=== PATIENT | female | born 1985 | race Two or more races ===

== ENCOUNTER 2025-06-05 20:28 | Emergency (ER) | payer SELFPAY ==
[~2025-06-05] VITALS: Ht 154.9 cm; Wt 96.6 kg
[2025-06-05 20:57] VITALS: BP 135/73
[2025-06-05 21:21] LABS: *BILIRUBIN,URIN NEGATIVE (NEGATIVE); *BLOOD, URINE 3+ (NEGATIVE); *CLARITY,URINE CLOUDY (CLEAR); *COLOR,URINE YELLOW (YELLOW); *KETONES,URINE TRACE (NEGATIVE); *PROTEIN,URINE 3+ (NEGATIVE); *UROBILINOGEN,URINE 0.2 E.U./dl (NORMAL); LEUKOCYTE ESTERASE ,URINE 3+ (NEGATIVE); NITRITE, URINE POSITIVE (NEGATIVE); UGLUCOSE NEGATIVE (NEGATIVE)
[2025-06-05 21:24] LABS: *URINE HCG, QUAL NEGATIVE (NEGATIVE)
[2025-06-05 21:35] LABS: SQUAMOUS EPITHELIAL CELL,UR MODERATE /HPF (NONE SEEN)
[2025-06-05 21:43] LABS: PLATELET COUNT (AUTO) 281 K/uL (179-408); RED BLOOD CELL COUNT(AUTO) 4.08 MIL/uL (3.63-4.92); RED CELL DISTRIBUTION WIDTH 13.6 % (12.3-17.7); WHITE BLOOD COUNT (AUTO) 12.3 K/uL (3.8-11.8)
[2025-06-05 21:51] LABS: CREATININE 0.9 mg/dL (0.6-1.3); SODIUM SERUM 141.0 mmol/L (136-145); UREA NITROGEN, BLOOD 17.0 mg/dL (7-18)
[2025-06-05] MEDS ORDERED: ACETAMINOPHEN 500 MG TABLET ONE (22:57)
[2025-06-05] MEDS ORDERED: PHENAZOPYRIDINE HCL 100 MG TABLET ONE (22:57)
[2025-06-05] MEDS: ACETAMINOPHEN 500 MG TABLET PO ONE (22:58)
[2025-06-05] MEDS: PHENAZOPYRIDINE HCL 100 MG TABLET PO ONE (22:58)
[2025-06-05] MEDS ORDERED: LEVO500T90 PO (23:04)
[2025-06-05 23:23] VITALS: BP 135/73; TEMP 98; O2SAT 98
== END 2025-06-05 23:23 | disposition home or self-care (01) ==
LOC: ER 20:46
DX: N39.0 Urinary tract infection, site not specified (principal); Z90.49 Acquired absence of other specified parts of digestive tract
CPT/HCPCS: 36415; 84703; 85025; 87086; A4606; A4663; A9150